=== PATIENT | female | born 1990 | race Caucasian/White ===

== ENCOUNTER 2016-10-25 11:23 | Emergency (ER) | payer OTHER ==
--- NOTE | ~2016-10-25 | US98 ---
[facility] A Service [facility] RADIOLOGY TEXT RESULTS PATIENT: SHADY MCCANN LOCATION: SED : 86 UNIT #: [id number] AGE: [address]: Ricardo Diggs MD SEX: F ORDER DR: [id number] [place] [id number] E MR#: [id number] Acc #: [id number] NAME: SHADY MCCANN : 1990 SEX: F STUDY DATE/TIME: 10/25/2016 13:57 UNIT: SED ROOM: STUDY DESCRIPTION: US Pelvic Non-OB Complete Attending Physician: Ricardo Diggs M.D. Ordering Physician: Ricardo Diggs M.D. Primary Care Physician: Primary Care Physician No MEDICAL IMAGING REPORT This report is preliminary unless electronic signature is present. EXAM Pelvic ultrasound INDICATIONS Left-sided pelvic pain for the past day. PROCEDURE Bryson-scale and Doppler imaging of the pelvis via transabdominal and transvaginal approach. COMPARISON None FINDINGS Pelvic structures are not well seen transabdominally. The uterus is anteverted and measures 7.1 x 4.7 x 5.7 cm. Endometrium measures 5 mm in thickness. Right ovary measures 2.5 x 3.7 x 1.7 cm and is normal. Left ovary measures 2.0 x 3.2 x 1.6 cm and is normal. No pelvic fluid. IMPRESSION Normal pelvic ultrasound for the patient's age. Dictated by... Golden Delgadillo M.D. THIS IS AN ELECTRONICALLY VERIFIED REPORT Gloden Delgadillo M.D. at 10/27/2016 9:53 PM TEJAS/[email or web address] TD: 10/25/2016 16:04 JOB #: [id number] [facility] A Service [facility] RADIOLOGY TEXT RESULTS PATIENT: SHADY MCCANN LOCATION: SED : 86 UNIT #: [id number] AGE: [address]: Ricardo Diggs MD SEX: F ORDER DR: MEDICAL IMAGING REPORT Page 1 of 1
[~2016-10-25 11:23] MED LIST: AMOXICILLIN500 M1 PO; BACTRIM DS TABL1 TA1 PO; DOXYCYCLINE HY100 M3 PO; MEDROL4 MG/DOSE- PO; NO MEDICATIONS; PRENATAL1 TA1 PO; ZITHROMAX1 G/PKT PO
[2016-10-25 12:19] LABS: URINE SOURCE CLEAN CATCH
[2016-10-25 12:22] LABS: URINE APPEARANCE CLEAR; URINE BILIRUBIN NEG (NEG); URINE BLOOD 2+ (NEG); URINE COLOR YELLOW; URINE GLUCOSE NEG (NORM); URINE KETONE NEG (NEG); URINE LEUKOCYTE ESTERASE 1+ (NEG); URINE NITRATE NEG (NEG); URINE PROTEIN NEG (NEG); URINE UROBILINOGEN 0.2 MG/DL (NORM)
[2016-10-25 12:26] LABS: MICRO INDICATED? YES
[2016-10-25 12:28] LABS: CULTURE INDICATED? YES; URINE BACTERIA 1+ (NEG); URINE MUCUS PRESENT; URINE SQUAMOUS EPITHELIAL CELL MODERATE /[HPF]
== END 2016-10-25 15:24 | disposition home or self-care (01) ==
LOC: SED 11:23
PROVIDERS: Emergency Medicine
DX: R10.9 Unspecified abdominal pain (principal); F17.210 Nicotine dependence, cigarettes, uncomplicated; Z88.0 Allergy status to penicillin
CPT/HCPCS: 76830; 76856; 81003; 84703; 87086; 99284